=== PATIENT | male | born 1995 | race Caucasian/White ===

== ENCOUNTER 2017-11-05 11:00 | Emergency (ER) | payer MEDICAID, OTHER ==
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
[2017-11-05 13:22] VITALS: BP 135/78
== END 2017-11-05 13:22 | disposition home or self-care (01) ==
DX: S50.02XA Contusion of left elbow, initial encounter (principal); S51.012A Laceration without foreign body of left elbow, initial encounter; S50.312A Abrasion of left elbow, initial encounter; J45.909 Unspecified asthma, uncomplicated; F17.200 Nicotine dependence, unspecified, uncomplicated; V18.4XXA Pedal cycle driver injured in noncollision transport accident in traffic accident, initial encounter; Y92.410 Unspecified street and highway as the place of occurrence of the external cause; Y99.8 Other external cause status; Y93.55 Activity, bike riding

== ENCOUNTER 2017-11-07 09:46 | Emergency (ER) | payer MEDICAID ==
[2017-11-07 09:51] VITALS: BP 127/74
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
== END 2017-11-07 10:18 | disposition home or self-care (01) ==
DX: M25.522 Pain in left elbow (principal); F17.200 Nicotine dependence, unspecified, uncomplicated

== ENCOUNTER 2018-06-09 21:51 | Observation (INO) | payer SELFPAY ==
--- NOTE | 2018-06-09 22:12 | EDPHY ---
General Time Seen by Provider: 06/09/18 22:11 Narrative: CLINICAL IMPRESSION: Colitis ASSESSMENT/PLAN: Patient is a 22-year-old male with no significant medical history who presents to the emergency department with left lower quadrant pain, nausea, decreased appetite and bloody stools. Patient is afebrile, uncomfortable appearing however not toxic-appearing. His vital signs were reviewed, no findings to suggest sepsis. Hemoccult-positive, bright red blood. CBC revealed leukocytosis of 16,000, basic metabolic panel was slightly hemolyzed in revealed a mildly elevated potassium which I believe is secondary to hemolysis; no evidence of acute kidney injury. CT abdomen and pelvis revealed thickening of the descending colon with a small amount of fluid in the pelvis consistent with colitis. There is no evidence of perforation or abscess. Patient with no family history or personal history of inflammatory bowel disease. Patient was given Cipro and Flagyl in light of leukocytosis and possibility of infectious colitis. Patient was given several doses of narcotic with improvement of his discomfort, on repeat exam is abdomen was soft without evidence of a surgical abdomen. The patient will be admitted to the hospitalist service for further observation and management, I spoke directly with Dr. Cannon who will be the admitting physician. DIFFERENTIAL DX: Abdominal pain including but not limited to appendicitis, cholecystitis, gastritis and urinary tract infection. ED COURSE: 2313: Dr. Pettit, thickening of descending. Small amount of free fluid, no abscess or perforation. Consistent with colitis- infectious vs inflammatory. 2325: On repeat examination the patient reports improvement of his discomfort however still reports 5/10 pain. His abdomen is soft with tenderness in the left lower quadrant, no evidence of a surgical abdomen. CHIEF COMPLAINT: Chills, LLQ pain, nausea, decreased appetite, bloody stool HPI: Patient is a 22-year-old male with no significant medical history who presents to the emergency department with reports of decreased appetite, chills, nausea, left lower quadrant pain and the stools. Patient reports this morning he got up and went to the bathroom, experienced bright red blood in the toilet bowl. He strained very hard, was unable to actually have a bowel movement. Patient endorses the feeling of needing to defecate 7-8 additional times however unable to produce any stool, bright red blood in the toilet on each occasion. Shortly after he noted blood in the toilet he started to experience left lower quadrant pain. The pain has been constant throughout the day, has waxed and waned in intensity. He has not tried taking anything for pain. He reports associated nausea and decreased appetite, he has been unable to eat anything secondary to his pain. Patient denies any recent travel, recent antibiotic use or sick contacts. No history of similar events in the past. No family history of inflammatory bowel disease. Patient denies any urinary symptoms to include dysuria, hematuria or frequency, also denies any testicular pain or swelling. He has no history of abdominal surgeries. PMH: Denies Pertinent Past Surgical History: Denies Family History: No history of inflammatory bowel dz Social History: Denies cigarettes, occasional meth, rare alcohol REVIEW OF SYSTEMS: All other systems negative Constitutional: Chills, decreased appetite. Eyes: No discharge, vision change ENT: No sore throat, congestion, ear pain. Cardiovascular: No chest pain, no palpitations. Respiratory: No cough, no shortness of breath. Gastrointestinal: Abdominal pain, nausea, constipation, bloody stools. Genitourinary: No hematuria, dysuria, flank pain, pelvic pain Musculoskeletal: No back pain, joint swelling, joint pain, myalgias. Skin: No rashes, color change. Neurological: No headache, dizziness, weakness. PHYSICAL EXAM: General Appearance: Well-developed, uncomfortable appearing however not toxic- appearing. HENT: Normocephalic, atraumatic. Bilateral external ears are normal. Bilateral tympanic membranes are normal with pearly cardoso reflex. Nares are clear, mucosa is pink. Oropharynx is clear, uvula is midline. There is no tonsillar enlargement or exudate. The dentition is normal. Eyes: PERRLA, no acute vision change, nystagmus, swelling, discharge, pain or photosensitivity. Conjunctiva pink, no pallor or injection Neck: Supple, nontender, no lymphadenopathy, no midline pain, FROM, no meningismus. Respiratory: There are no retractions, lungs are clear to auscultation. Cardiac: Regular rate and rhythm, no murmurs or gallops. Gastrointestinal: Patient with tenderness to palpation in the left lower quadrant without guarding or rebound tenderness. Bowel sounds are present. Negative Rovsing's, negative McBurney's point tenderness and negative Arizmendi sign. No masses/hernia. Neurological: Alert and oriented x 3, CN 2-12 grossly intact, normal gait no ataxia, DTR's intact, normal sensation and strength Skin: Warm, dry, no rashes, no nodules on palpation. Musculoskeletal: Extremities are symmetrical, full range of motion, no tenderness, deformity, swelling, or erythema. Psychiatric: Patient is oriented X 3, there is no agitation. MEDICAL DECISION MAKING: Patient was seen independently. Secondary supervising physician at time of evaluation was Dr. Pradhan, he also evaluated this patient. Diagnosis: Colitis. New, requires workup Summary: See Assessment and Plan for summary of ED visit Clinical lab tests: ordered / reviewed. Independent visualization of images, tracing, or specimens: Yes. Decision to obtain medical records or history from someone other than the patient: No Review / Summarize previous medical records: Yes Discussed patient with another provider: Yes, Dr. Pradhan and Dr. Cannon Patient Progress: Stable, admit. - Diagnostics Imaging Results: Imaging Impressions Abdomen CT 06/09/18 22:45 Impression: Circumferential thickening of the descending colon with pericolonic fat stranding. Trace free fluid. Findings likely represent colitis, of inflammatory or infectious origin. Findings and recommendations discussed with STEPHANIE Malagon at 2315 hour, 06/09. - History Smoking Status: Former smoker - Objective Vital Signs: Initial Vital Signs Temperature (C) 36.9 C 06/09/18 22:02 Heart Rate 85 06/09/18 22:02 Respiratory Rate 16 06/09/18 22:02 Blood Pressure 151/89 H 06/09/18 22:02 O2 Sat (%) 98 06/09/18 22:02 O2 Delivery Mode Room Air Allergies/Adverse Reactions: No Known Allergies Allergy (Verified 06/09/18 22:05) Home Medications: Medication Instructions Recorded Albuterol 5 mg/ml INH 06/09/18 Laboratory Results: Laboratory Results 06/09/18 22:15 06/09/18 22:15 06/09/18 06/09/18 06/09/18 22:30 22:15 22:15 WBC 16.13 10^3/uL H 10^3/uL (3.80-9.50) RBC 5.01 10^6/uL 10^6/uL (4.40-6.38) Hgb 15.6 g/dL g/dL (13.7-17.5) Hct 47.4 % % (40.0-51.0) MCV 94.6 fL fL (81.5-99.8) MCH 31.1 pg pg (27.9-34.1) MCHC 32.9 g/dL g/dL (32.4-36.7) RDW 13.9 % % (11.5-15.2) Plt Count 301 10^3/uL 10^3/uL (150-400) MPV 9.9 fL fL (8.7-11.7) Neut % (Auto) 78.5 % H % (39.3-74.2) Lymph % (Auto) 12.2 % L % (15.0-45.0) [place] % (Auto) 7.3 % % (4.5-13.0) Eos % (Auto) 1.4 % % (0.6-7.6) Baso % (Auto) 0.3 % % (0.3-1.7) Nucleat RBC Rel Count 0.0 % % (0.0-0.2) Absolute Neuts (auto) 12.65 10^3/uL H 10^3/uL (1.70-6.50) Absolute Lymphs (auto) 1.97 10^3/uL 10^3/uL (1.00-3.00) Absolute Monos (auto) 1.18 10^3/uL H 10^3/uL (0.30-0.80) Absolute Eos (auto) 0.23 10^3/uL 10^3/uL (0.03-0.40) Absolute Basos (auto) 0.05 10^3/uL 10^3/uL (0.02-0.10) Absolute Nucleated RBC 0.00 10^3/uL 10^3/uL (0-0.01) Immature Gran % 0.3 % % (0.0-1.1) Immature Gran # 0.05 10^3/uL 10^3/uL (0.00-0.10) Sodium 135 mEq/L mEq/L (135-145) Potassium 5.5 mEq/L H mEq/L (3.5-5.2) Chloride 101 mEq/L mEq/L (97-110) Carbon Dioxide 26 mEq/l mEq/l (22-31) Anion Gap 8 mEq/L mEq/L (6-14) BUN 8 mg/dL mg/dL (7-23) Creatinine 0.9 mg/dL mg/dL (0.7-1.3) Estimated GFR > 60 Glucose 128 mg/dL H mg/dL (70-100) Calcium 9.5 mg/dL mg/dL (8.5-10.4) Total Bilirubin 1.3 mg/dL mg/dL (0.1-1.4) AST 44 IU/L IU/L (17-59) ALT 26 IU/L IU/L (21-72) Alkaline Phosphatase 80 IU/L IU/L (38-126) Total Protein 7.3 g/dL g/dL (6.3-8.2) Albumin 4.4 g/dL g/dL (3.5-5.0) Specimen Hemolysis 182 Stool Occult Bld Scrn POSITIVE H (NEGATIVE) Medications Given: Metronidazole/Sodium Chloride (Flagyl 500 Mg (Premix)) 100 mls @ 100 mls/hr IV EDNOW ONE PRN Reason: Protocol Stop: 06/10/18 00:18 Last Admin: 06/09/18 23:28 Dose: 100 mls Discontinued Medications Hydromorphone HCl (Dilaudid) 0.5 mg IVP EDNOW ONE Stop: 06/09/18 22:26 Last Admin: 06/09/18 22:35 Dose: 0.5 mg Sodium Chloride (Ns) 1,000 mls @ 0 mls/hr IV EDNOW ONE; Wide Open PRN Reason: Protocol Stop: 06/09/18 22:26 Last Admin: 06/09/18 22:35 Dose: 1,000 mls Ondansetron HCl (Zofran) 4 mg IVP EDNOW ONE Stop: 06/09/18 22:26 Last Admin: 06/09/18 22:35 Dose: 4 mg Departure - Departure Disposition: [facility] Clinical Impression: Colitis Leukocytosis Qualifiers: Leukocytosis type: unspecified Qualified Code(s): D72.829 - Elevated white blood cell count, unspecified
[2018-06-09] MEDS ORDERED: NS 1,000 ML IV ONE (22:25)
[2018-06-09] MEDS ORDERED: HYDROmorphONE/DILAUDID 2 MG/ML INJ IVP ONE ×2 (22:25→23:24)
[2018-06-09] MEDS ORDERED: ONDANSETRON 4 MG/2 ML VIAL IVP ONE (22:25)
[2018-06-09 22:31] LABS: PLATELET COUNT 301 10^3/uL (150-400)
[2018-06-09] MEDS ORDERED: IOHEXOL 350mgI/ML (OMNIPAQUE) 150 ML BTL IV ONE (22:49)
[2018-06-09] MEDS ORDERED: CIPROFLOXACIN 400 MG/DEXTROSE 200 ML IV ONE (23:19)
[2018-06-10] MEDS ORDERED: diphenhydrAMINE 25 MG CAP PO PRN
[2018-06-10] MEDS ORDERED: ONDANSETRON DISINTEGRATING 4 MG TAB PO PRN
[2018-06-10] MEDS ORDERED: LORazepam 2 MG/ML INJ IVP PRN
[2018-06-10] MEDS ORDERED: NS 1,000 ML IV SCH
[2018-06-10] MEDS ORDERED: ONDANSETRON 4 MG/2 ML VIAL IVP PRN
[2018-06-10] MEDS ORDERED: ACETAMINOPHEN 325 MG TAB PO PRN
[2018-06-10] MEDS: HYDROCODONE/APAP 5/325 TAB PO PRN ×2 (01:10→09:22)
[2018-06-10 04:25] LABS: PLATELET COUNT 274 10^3/uL (150-400)
--- NOTE | 2018-06-10 04:58 | GHP ---
[f rep st] HISTORY AND PHYSICAL DATE OF ADMISSION: 06/09/2018 PRIMARY CARE PHYSICIAN: Caryn. SOURCE: Patient provides history, is a fair historian. The EMR was reviewed and case discussed with ED provider. CHIEF COMPLAINT: Left lower quadrant abdominal pain, bloody stools. HISTORY OF PRESENT ILLNESS: This is a very pleasant 22-year-old gentleman with past medical history significant for asthma, ADHD, who presents to the emergency department today with complaints of bright red bloody stools and left lower quadrant abdominal pain. Patient reports that his symptoms started this morning. He went to the bathroom and had bright red blood in the toilet bowl. Patient endorses worsening, intermittent, cramping, left lower quadrant abdominal pain, nausea, and chills, but no vomiting. Patient has not had any passage of stools. Rather, he reports silvestre blood when he went to the bathroom. He denies any fevers. No recent travels or exposures. No known sick contacts with similar symptoms. Patient without any previous history of GI irritability or medical issues. No family history of GI-related illnesses. No IBD history in either himself or family. REVIEW OF SYSTEMS: Ten systems reviewed and negative except as noted above. ALLERGIES: No known drug allergies. HOME MEDICATIONS: Albuterol. PAST MEDICAL HISTORY: Significant for shingles 2012, chronic back pain, asthma , ADHD, abscess. PAST SURGICAL HISTORY: Patient had a mandibular fracture repair FAMILY HISTORY: Negative for IBD. Grandmother with diabetes. SOCIAL HISTORY: Patient is employed. He quit smoking and utilizing any illicit drug use including a previous history of meth. He rarely drinks any alcohol except for special occasions. CODE STATUS: Full. PHYSICAL EXAMINATION: VITAL SIGNS: Upon arrival to the ED, blood pressure is 151/89, heart rate is 85, respiratory rate of 16, O2 saturation is 98% on room air, temperature 36.9. CURRENT VITALS AVAILABLE: Blood pressure 127/69, heart rate 96, respiratory rate 15, O2 saturation 96% on room air with a temperature of 37.0. GENERAL: No acute distress. Pleasant, young adult male, who is lying quietly on bed. He is sleeping quietly, in no acute distress. He is a little bit somnolent and does fall asleep intermittently during the interview. HEAD: Normocephalic, atraumatic. EYES: Extraocular muscles are grossly intact. Pupils equal, round, and symmetric. No scleral icterus, conjunctival injection. Mucous membranes appear dry. No nasal discharge. NECK: Supple. Trachea midline. CV: Regular rate and rhythm. No murmurs, rubs, or gallops appreciated. RESPIRATORY: Unlabored breathing. Lungs clear to auscultation bilaterally. No wheezes, rales, or rhonchi. Abdomen with slightly hypoactive bowel sounds, but no tenderness to palpation. No rebound, guarding, or masses appreciated. Nondistended abdomen. : No suprapubic tenderness to palpation. No Monroe catheter in place. EXTREMITIES: 2+ pedal pulses bilaterally and symmetric. No edema. Patient able to move all extremities. NEURO: Grossly nonfocal. No facial drooping. Patient moves all extremities. PSYCH: Affect slightly flat, but patient is again somnolent. He is otherwise pleasant and cooperative. LABORATORY STUDIES: WBC 16.3, H and H are 15.6 and 47.4, MCV of 94.6, platelet count is 301. No bands. Neutrophils 378.5. Sodium is 135, potassium is 5.5; however, sample is hemolyzed, chloride 101, CO2 is 26, anion gap 8, BUN 8, creatinine 0.9, GFR of greater than 60, glucose 128, calcium is 9.5, total bilirubin is 1.3, ALT is 26, AST is 44, alkaline phosphatase 88, total protein 7.3, albumin is 4.4. Occult stool blood is positive. CT abdomen and pelvis image report reviewed significant for circumferential thickening of the descending colon with pericolonic fat stranding. Trace free fluid. Findings likely represent colitis of inflammatory or infectious origin. ASSESSMENT AND PLAN: Brain, 22-year-old gentleman, with a history of asthma , who presents to the emergency department today with complaints of 1-day history of left lower quadrant abdominal pain and bloody stools. 1. Colitis, suspected infectious colitis versus less likely ischemic versus less likely ulcerative colitis. Patient without any previous abdominal issues and no family history of autoimmune or IBD. The patient has been started on ciprofloxacin and Flagyl. The patient reports improvement of his symptoms. He does continue to have some intermittent cramping, but has been resting on the floor since his arrival without any additional bloody bowel movements. If patient should develop worsening abdominal pain or diarrhea, we will plan to check a GI PCR; however, at this time, again patient's symptoms appear to have come under control. Continue antibiotic therapy. Clear diet until patient is a little bit more awake to tolerate a regular and advance as tolerated. Outpatient followup with GI when patient recovers. 2. Leukocytosis, likely related to infectious etiology in setting of the patient's apparent colitis, now on antibiotics. We will plan to repeat a CBC in the morning. 3. Hyperkalemia is likely due to hemolyzed specimen. Plan to repeat in the morning. 4. Hyperglycemia, is nonfasting lab. Plan to recheck a fasting in the a.m. labs. 5. Fluid, electrolyte, nutrition. Patient will receive IV fluid supplementation overnight and advance diet as tolerated. He has been tolerating clears very well. Electrolytes are adequate. Monitor potassium as noted above. 6. Prophylaxis. Sequential compression devices. Holding anticoagulation in setting of gastrointestinal bleeding as well as low risk and anticipated short hospital stay. 7. Cor status is full. DISPOSITION: The patient admitted to observation status on med/surge floor for continued treatment of his colitis. /[id number]/MODL MTDD
[2018-06-10] MEDS ORDERED: CIPROFLOXACIN 400 MG/DEXTROSE 200 ML IV SCH (09:00)
--- NOTE | 2018-06-10 11:40 | ASMTCMCOM ---
CM Note CM Note Notes: Pts case discussed in tx rounds. Pt is a 22 y/o man admitted for colitis. Pt has court today at 1PM. Pt notified the court that he is in the hospital and will not be able to make it. Pt will need a letter for court when he is medically stable to d/c. CM made a referral to [facility]. Pt has a hx of meth use but currently sober. Pt will d/c independent without any needs. CM available for changes. Plan: Independent Date Signed: 06/10/2018 11:39 AM Electronically Signed By:JAYA Webster
--- NOTE | 2018-06-10 14:22 | ASMTCMCOM ---
CM Note CM Note Notes: CM wrote pt a letter for the courts stating he is in the hospital. Pts grandmother stopped by and picked up the letter to deliver to the courts. CM called a number for the courts that pt provided (P#: [phone]) and left a msg stating he is at [facility]. Date Signed: 06/10/2018 02:22 PM Electronically Signed By:JAYA Webster
--- NOTE | 2018-06-10 14:39 | HOSPPROG ---
Hospitalist Progress Note Assessment/Plan: Colitis - Presenting with LLQ Abd pain, BRBPR - CT on admission showing thickening of descending colon, no perforation or abscess seen - Infectious vs. Inflammatory, no hx of abdominal issues, no family hx of IBD or autoimmune diseases - Started on Cipro/Flagyl IV, will continue for now - GI PCR ordered, f/u results - Continued to have BRBPR this AM, consulted GI for need for colonoscopy IP vs. OP BRBPR - Having bloody bowel movements in setting of colitis as above - Hgb decreased 15.6 -> 13.9 this AM, partially diluted but also had large bloody BM this AM - GI consulted as above for colonoscopy need - Continue to monitor H/H, transfuse H/H <7/20 Leukocytosis - WBC 16.1 on admission, decreased to 10.5 this AM - In setting of colitis, management as above, will continue empiric Flagyl/ Cipro - Continue to monitor FEN: NPO for now pending GI evaluation DVT PPx: Holding for now given GIB Code: FULL Dispo: Pending clinical course Objective: Vital Signs Temp Pulse Resp BP Pulse Ox 36.3 C 75 16 113/63 96 06/10/18 07:36 06/10/18 07:36 06/10/18 07:36 06/10/18 07:36 06/10/18 07:36 Laboratory Results 06/10/18 03:56 06/10/18 03:56 06/09/18 06/10/18 06/11/18 05:59 05:59 05:59 Intake Total 3025 Balance 3025 ICD10 Worksheet Patient Problems: Problems Problem Status Onset Colitis Acute Leukocytosis Acute
[2018-06-10 15:29] VITALS: BP 125/59
--- NOTE | 2018-06-10 16:05 | PDDCSUM ---
Discharge Summary Discharge Summary: Date of Admission: 06/09/2018 Date of Admission: 06/10/2018 Hospital Course Problem List: Patient requested to leave AMA, discussed benefits and risks of leaving the hospital prior to discharge which included worsening of condition and possible , patient expressed understanding. Colitis - Presenting with LLQ Abd pain, BRBPR - CT on admission showing thickening of descending colon, no perforation or abscess seen - Infectious vs. Inflammatory, no hx of abdominal issues, no family hx of IBD or autoimmune diseases - Started on Cipro/Flagyl IV, will continue for 5 day course, will send rx to pharmacy - GI PCR ordered, f/u results - Continued to have BRBPR this AM, consulted GI for need for colonoscopy IP vs. OP, recommended patient followup as outpatient with PCP for further evaluation BRBPR - Having bloody bowel movements in setting of colitis as above - Hgb decreased 15.6 -> 13.9 this AM, partially diluted but also had large bloody BM this AM - GI consulted as above for colonoscopy need Leukocytosis - WBC 16.1 on admission, decreased to 10.5 this AM - In setting of colitis, management as above, will continue empiric Flagyl/ Cipro - Continue to monitor Time spent on documentation was >35 minutes with >50% of time spent on patient education and counseling.
--- NOTE | 2018-06-10 16:27 | ASMTCMCOM ---
CM Note CM Note Notes: Pt left AMA. CM notified the courts (P#: [phone]) that pt is leaving AMA. Date Signed: 06/10/2018 04:26 PM Electronically Signed By:JAYA Webster
== END 2018-06-10 15:56 | disposition left against medical advice (07) ==
LOC: F2W 06-10 00:28
PROVIDERS: ADMIT Family Medicine; ATTEND Internal Medicine
DX: K52.9 Noninfective gastroenteritis and colitis, unspecified (principal); K92.1 Melena; E86.9 Volume depletion, unspecified; D72.829 Elevated white blood cell count, unspecified; E87.5 Hyperkalemia; R73.9 Hyperglycemia, unspecified; J45.909 Unspecified asthma, uncomplicated; F90.9 Attention-deficit hyperactivity disorder, unspecified type; Z87.891 Personal history of nicotine dependence
CPT/HCPCS: 96374; G0378; J0744; J1170; J2405; Q9967

== ENCOUNTER 2018-06-11 17:04 | Observation (INO) | payer MEDICAID, OTHER ==
--- NOTE | 2018-06-11 17:31 | EDPHY ---
H & P Stated Complaint: abd pain, bloody stools Time Seen by Provider: 06/11/18 17:18 HPI/ROS: CHIEF COMPLAINT: "I shouldn't have left the hospital yesterday " HISTORY OF PRESENT ILLNESS: 22-year-old male was admitted to [facility] yesterday for left lower quadrant abdominal pain , bright red blood per rectum and CT showing thickening of the descending colon, infectious versus inflammatory colitis. He informs that he left against medical advice because he was afraid to get a colonoscopy, however upon talking to his family and he returned home the encouraged him to come to the ER and have a colonoscopy performed. He is agreeable with colonoscopy should he get readmitted to the hospital. When he left AMA he was given prescription for Cipro and Flagyl. He has been taking this as prescribed. He is complaining of continued bright red blood per rectum and continued left lower quadrant abdominal pain. No nausea no vomiting. No testicular pain. No urinary abnormality. No pain with defecation. No dizziness. No syncope or near syncope. No chest pain. No dyspnea. Last oral intake was breakfast this morning. REVIEW OF SYSTEMS: 10 systems reviewed and negative with the exception of the elements mentioned in the history of present illness PAST MEDICAL & SURGICAL HISTORY: recent hospital admission for left lower quadrant abdominal pain SOCIAL HISTORY: Positive for tobacco abuse PHYSICAL EXAM (Prior to examination, patient consented to physical exam, hands were washed and my usual and customary physical exam procedures followed) 1) GENERAL: Well-developed, well-nourished, alert and oriented. Appears to be in no acute distress. 2) HEAD: Normocephalic, atraumatic 3) HEENT: Pupils equal, round, reactive to light bilaterally. Sclera anicteric. Nasopharynx, oropharynx, clear, no lesions. Dry mucous membranes. 4) NECK: Full range of motion, no meningeal signs. 5) LUNGS: Clear auscultation bilaterally, no wheezes, no rhonchi, no retractions. 6) HEART: Regular rate and rhythm, no murmur, no heave, no gallop. 7) ABDOMEN: guarding left lower quadrant, tender to palpation left lower quadrant. No peritoneal sign., 8) MUSCULOSKELETAL: Moving all extremities, no focal areas of tenderness, no obvious trauma. No peripheral edema or discoloration. 9) BACK: No CVA tenderness, no midline vertebral tenderness, no fluctuance, no step-off, no obvious trauma, no visual or palpable abnormality. 10) SKIN: No rash, no petechiae. 11) Psychiatric: Patient is oriented X 3, there is no agitation. DIFFERENTIAL DIAGNOSIS: In no particular order including but not limited to diverticulitis, diverticular abscess, colitis - Personal History Current Tetanus/Diphtheria Vaccine: Yes Current Tetanus Diphtheria and Acellular Pertussis (TDAP): Yes - Medical/Surgical History Hx Asthma: Yes Hx Chronic Respiratory Disease: No Hx Diabetes: No Hx Cardiac Disease: No Hx Renal Disease: No Hx Cirrhosis: No Hx Alcoholism: No Hx HIV/AIDS: No Hx Splenectomy or Spleen Trauma: No Other PMH: asthma, adhd, abcess 2/2 spider bite. MCA 11/05/17., colitis - Social History Smoking Status: Former smoker Constitutional: Initial Vital Signs Temperature (C) 36.6 C 06/11/18 17:09 Heart Rate 105 H 06/11/18 17:09 Respiratory Rate 16 06/11/18 17:09 Blood Pressure 107/89 H 06/11/18 17:09 O2 Sat (%) 99 06/11/18 17:09 O2 Delivery Mode Room Air Allergies/Adverse Reactions: No Known Allergies Allergy (Verified 06/11/18 17:09) Home Medications: Medication Instructions Recorded Albuterol [Proventil Inhaler HFA 1 - 2 puffs IH Q4H PRN 06/09/18 (*)] Medical Decision Making ED Course/Re-evaluation: 5:30 p.m.: I reviewed the patient's old medical records. He apologizes for leaving the hospital against medical advice. He would like to be readmitted speaking have a colonoscopy performed.. He is complaining of continued left lower quadrant abdominal pain and bright red blood per rectum. Will obtain laboratory studies. Will hold on repeat CT at this time. Care of patient under supervision of secondary supervising physician Dr Stoney Gore with whom I discussed case. Patient is hemodynamically stable at this time. He is NPO since 9:00 a.m. today. 5:[address] Martinez who will admit patient to hospital. - Data Points Laboratory Results: Laboratory Results 06/11/18 17:26 06/11/18 17:26 06/11/18 06/11/18 17:26 17:26 WBC 12.45 10^3/uL H 10^3/uL (3.80-9.50) RBC 4.95 10^6/uL 10^6/uL (4.40-6.38) Hgb 15.2 g/dL g/dL (13.7-17.5) Hct 45.7 % % (40.0-51.0) MCV 92.3 fL fL (81.5-99.8) MCH 30.7 pg pg (27.9-34.1) MCHC 33.3 g/dL g/dL (32.4-36.7) RDW 13.9 % % (11.5-15.2) Plt Count 321 10^3/uL 10^3/uL (150-400) MPV 9.6 fL fL (8.7-11.7) Neut % (Auto) 67.0 % % (39.3-74.2) Lymph % (Auto) 19.9 % % (15.0-45.0) [place] % (Auto) 9.1 % % (4.5-13.0) Eos % (Auto) 2.7 % % (0.6-7.6) Baso % (Auto) 0.4 % % (0.3-1.7) Nucleat RBC Rel Count 0.0 % % (0.0-0.2) Absolute Neuts (auto) 8.34 10^3/uL H 10^3/uL (1.70-6.50) Absolute Lymphs (auto) 2.48 10^3/uL 10^3/uL (1.00-3.00) Absolute Monos (auto) 1.13 10^3/uL H 10^3/uL (0.30-0.80) Absolute Eos (auto) 0.34 10^3/uL 10^3/uL (0.03-0.40) Absolute Basos (auto) 0.05 10^3/uL 10^3/uL (0.02-0.10) Absolute Nucleated RBC 0.00 10^3/uL 10^3/uL (0-0.01) Immature Gran % 0.9 % % (0.0-1.1) Immature Gran # 0.11 10^3/uL H 10^3/uL (0.00-0.10) Sodium 135 mEq/L mEq/L (135-145) Potassium 4.0 mEq/L mEq/L (3.5-5.2) Chloride 97 mEq/L mEq/L (97-110) Carbon Dioxide 29 mEq/l mEq/l (22-31) Anion Gap 9 mEq/L mEq/L (6-14) BUN 13 mg/dL mg/dL (7-23) Creatinine 0.9 mg/dL mg/dL (0.7-1.3) Estimated GFR > 60 Glucose 96 mg/dL mg/dL (70-100) Calcium 9.6 mg/dL mg/dL (8.5-10.4) Total Bilirubin 0.3 mg/dL mg/dL (0.1-1.4) Conjugated Bilirubin 0.3 mg/dL mg/dL (0.0-0.5) Unconjugated Bilirubin 0.0 mg/dL mg/dL (0.0-1.1) AST 34 IU/L IU/L (17-59) ALT 32 IU/L IU/L (21-72) Alkaline Phosphatase 88 IU/L IU/L (38-126) Total Protein 7.2 g/dL g/dL (6.3-8.2) Albumin 4.3 g/dL g/dL (3.5-5.0) Lipase 50 IU/L IU/L (23-300) Departure - Departure Disposition: [facility] Acute Clinical Impression: Colitis Condition: Fair
[2018-06-11 17:47] LABS: PLATELET COUNT 321 10^3/uL (150-400)
[2018-06-11] MEDS ORDERED: NS 1,000 ML IV ONE (17:51)
[2018-06-11] MEDS ORDERED: ONDANSETRON 4 MG/2 ML VIAL IVP PRN (19:07)
[2018-06-11] MEDS ORDERED: ACETAMINOPHEN 325 MG TAB PO PRN (19:07)
[2018-06-11] MEDS ORDERED: ONDANSETRON DISINTEGRATING 4 MG TAB PO PRN (19:07)
[2018-06-11] MEDS ORDERED: ALBUTEROL 60 PUFFS/8 GM MDI IH PRN (19:10)
[2018-06-11] MEDS ORDERED: NS 1,000 ML IV SCH (19:15)
--- NOTE | 2018-06-11 19:25 | PDGENHP ---
History and Physical - Chief Complaint LLQ abdominal pain, hematochezia - History of Present Illness HPI: This is a 22 y/o male with history of asthma, ADHD who was admitted yesterday for bright-red stools per rectum and LLQ abdominal pain that started yesterday prior to arrival to ER however left against medical advice the same day because he was scared of a colonoscopy. He has since returned after discussing it with his family and said he should never have left in the first place. He continues to have LLQ > RLQ pain, he has had one BM since leaving yesterday which was loose and bright red blood. He endorses feeling lightheaded constantly. Denies nausea, vomiting, fever or chills. No chest pains, palpitations or shortness of breath. No history of GI irritability. Yesterday's abdominal CT scan showed thickening of descending colon, no perforation or abscess seen. Most likely colitis either inflammatory or infectious. Past Medical History 1. Shingles (2011) 2. Chronic back pain 3. Asthma 4. ADHD 5. Abscess secondary to a spider bite Past Surgical History 1. Mandibular fracture repair Social He is employed. He quit smoking 2 weeks ago because he has asthma. Denies illicit drug use; prior use of meth. He rarely drinks alcohol. History Information - Allergies/Home Medication List Allergies/Adverse Reactions: No Known Allergies Allergy (Verified 06/11/18 17:09) Home Medications: Albuterol [Proventil Inhaler HFA (*)] 1 - 2 puffs IH Q4H PRN 06/09/18 [Last Taken Unknown] I have personally reviewed and updated: family history, medical history, social history, surgical history Past Medical History: See HPI list - Surgical History Additional surgical history: See HPI list - Family History Positive for: diabetes type II - Social History Smoking Status: Former smoker Review of Systems Review of Systems: ROS: 10pt was reviewed & negative except for what was stated in HPI & below Constitutional: Reports: chills, malaise EENMT: Reports: no symptoms Cardiac: Reports: lightheadedness Respiratory: Reports: no symptoms Gastrointestinal: Reports: blood streaked stools, abdominal pain Genitourinary: Reports: no symptoms Muscolosketal: Reports: no symptoms Skin: Reports: no symptoms Neurological: Reports: no symptoms Hematologic/Lymphatic: Reports: no symptoms Immunologic/Allergy: Reports: no symptoms Physical Exam Physical Exam: Lab data and imaging were reviewed. Case discussed with admitting physician, Dr. Iván Stuart Pulse Resp BP Pulse Ox 37.1 C 94 18 117/72 99 06/11/18 18:25 06/11/18 18:25 06/11/18 18:25 06/11/18 18:25 06/11/18 18:25 Constitutional: no apparent distress, appears nourished, uncomfortable Eyes: PERRL, anicteric sclera, EOMI Ears, Nose, Mouth, Throat: moist mucous membranes, hearing normal, ears appear normal, no oral mucosal ulcers Cardiovascular: regular rate and rhythym, no murmur, rub, or gallop, No edema Peripheral Pulses: 2+: dorsalis-pedis (R) (Radial 2+), dorsalis-pedis (L) ( Radial 2+) Respiratory: no respiratory distress, no rales or rhonchi, clear to auscultation Gastrointestinal: normoactive bowel sounds, tenderness, guarding Genitourinary: no bladder fullness, no bladder tenderness Skin: warm, normal color, no rashes or abrasions, no fluctuance, no induration, No mottled Musculoskeletal: full muscle strength, no muscle tenderness, normal joint ROM, no joint effusions Neurologic: AAOx3, sensation intact bilaterally, CN II-XII Intact Psychiatric: interacting appropriately, not anxious, not encephalopathic, thought process linear Lymph, Heme, Immunologic: no cervical LAD, no supraclavicular LAD Lab Data & Imaging Review 06/11/18 17:26 06/11/18 17:26 WBC 12.45 10^3/uL (3.80-9.50) H 06/11/18 17:26 RBC 4.95 10^6/uL (4.40-6.38) 06/11/18 17:26 Hgb 15.2 g/dL (13.7-17.5) 06/11/18 17: Hct 45.7 % (40.0-51.0) 06/11/18 17: MCV 92.3 fL (81.5-99.8) 06/11/18 17: MCH 30.7 pg (27.9-34.1) 06/11/18 17: MCHC 33.3 g/dL (32.4-36.7) 06/11/18 17:26 RDW 13.9 % (11.5-15.2) 06/11/18 17:26 Plt Count 321 10^3/uL (150-400) 06/11/18 17:26 MPV 9.6 fL (8.7-11.7) 06/11/18 17:26 Neut % (Auto) 67.0 % (39.3-74.2) 06/11/18 17:26 Lymph % (Auto) 19.9 % (15.0-45.0) 06/11/18 17:26 [place] % (Auto) 9.1 % (4.5-13.0) 06/11/18 17:26 Eos % (Auto) 2.7 % (0.6-7.6) 06/11/18 17: Baso % (Auto) 0.4 % (0.3-1.7) 06/11/18 17: Nucleat RBC Rel Count 0.0 % (0.0-0.2) 06/11/18 17:26 Absolute Neuts (auto) 8.34 10^3/uL (1.70-6.50) H 06/11/18 17:26 Absolute Lymphs (auto) 2.48 10^3/uL (1.00-3.00) 06/11/18 17:26 Absolute Monos (auto) 1.13 10^3/uL (0.30-0.80) H 06/11/18 17:26 Absolute Eos (auto) 0.34 10^3/uL (0.03-0.40) 06/11/18 17:26 Absolute Basos (auto) 0.05 10^3/uL (0.02-0.10) 06/11/18 17: Absolute Nucleated RBC 0.00 10^3/uL (0-0.01) 06/11/18 17:26 Immature Gran % 0.9 % (0.0-1.1) 06/11/18 17: Immature Gran # 0.11 10^3/uL (0.00-0.10) H 06/11/18 17:26 Sodium 135 mEq/L (135-145) 06/11/18 17:26 Potassium 4.0 mEq/L (3.5-5.2) 06/11/18 17:26 Chloride 97 mEq/L (97-110) 06/11/18 17:26 Carbon Dioxide 29 mEq/l (22-31) 06/11/18 17:26 Anion Gap 9 mEq/L (6-14) 06/11/18 17:26 BUN 13 mg/dL (7-23) 06/11/18 17:26 Creatinine 0.9 mg/dL (0.7-1.3) 06/11/18 17:26 Estimated GFR > 60 06/11/18 17:26 Glucose 96 mg/dL (70-100) 06/11/18 17:26 Calcium 9.6 mg/dL (8.5-10.4) 06/11/18 17:26 Total Bilirubin 0.3 mg/dL (0.1-1.4) 06/11/18 17:26 Conjugated Bilirubin 0.3 mg/dL (0.0-0.5) 06/11/18 17:26 Unconjugated Bilirubin 0.0 mg/dL (0.0-1.1) 06/11/18 17:26 AST 34 IU/L (17-59) 06/11/18 17:26 ALT 32 IU/L (21-72) 06/11/18 17:26 Alkaline Phosphatase 88 IU/L (38-126) 06/11/18 17:26 Total Protein 7.2 g/dL (6.3-8.2) 06/11/18 17:26 Albumin 4.3 g/dL (3.5-5.0) 06/11/18 17:26 Lipase 50 IU/L (23-300) 06/11/18 17:26 Assessment & Plan Plan: 22 y/o presents once again to the ER with continued symptoms of silvestre blood in stool and LLQ abdominal pain. #Colitis: presenting with LLQ abd pain, bright red blood per rectum. CT image most likely colitis, inflammatory vs infectious. -Yesterday was started on IV and then later PO Flagyl and Cipro: will continue these IV -Checking GI pathogen panel. F/u results -Consulted GI for possible colonoscopy. Dr Haddad to evaluate pt tonight therefore is placed on NPO status for now. May transition to clear liquid diet if no interventions by GI take place. #Bright red blood per rectum -Having bloody bowel movements in setting of colitis as above -Hgb 15.2 compared to yesterday which was 13.9 -GI consulted as above for colonoscopy need -Cycle H/H Q4H x3, continue to monitor, tranfuse H/H <7/20 #Leukocytosis -WBC 12.45 compared to yesterday which was 16.1 on admission -In setting of colitis, management as above, will continue empiric Flagyl/Cipro -Continue to monitor Diet: NPO for now pending GI evaluation VTE ppx: SCDs Code: Full Dispo: Admit to obs
--- NOTE | 2018-06-11 20:14 | SOAPPROG ---
SOAP Progress Note Assessment/Plan: Assessment:Plan: see full dictated consult to follow 22 y/o male with acute onset pain and hematochezia with abn, ct showing thickening in descending colon infectous vs inflammatory no f/c/s, was w/o sx's prior to acute event few days ago colon prep, colon tomorrow post prep with anesthesia Kiet Haddad MD [phone] 06/11/18 20:12 Objective: Vital Signs Temp Pulse Resp BP Pulse Ox 36.7 C 83 17 111/70 96 06/11/18 19:22 06/11/18 19:22 06/11/18 19:22 06/11/18 19:22 06/11/18 19:22 Laboratory Results 06/11/18 19:45 06/10/18 06/11/18 06/12/18 05:59 05:59 05:59 Intake Total 850 Balance 850 ICD10 Worksheet Patient Problems: Problems Problem Status Onset Colitis Acute Leukocytosis Acute
[2018-06-11] MEDS ORDERED: PEG 3350/NA SULF,BICARB,CL/KCL (GAVILYTE-G) 4000 ML BTL PO ONE (20:15)
[2018-06-11] MEDS ORDERED: CIPROFLOXACIN 400 MG/DEXTROSE 200 ML IV SCH (21:00)
--- NOTE | 2018-06-11 22:15 | HOSPPROG ---
Hospitalist Progress Note Assessment/Plan: 22 y/o presents returning with silvestre blood in stool and LLQ abdominal pain. Pt seen with LOG INSPECTOR, please refer to her H&P. Agree with her A/P #Colitis #Bright red blood per rectum #Leukocytosis Agree with Abx Clears tonight colonoscopy in a.m. GI following d/W GI Subjective: He is glad to have returned. abd pain is minimal now. no cp or sob. afebrile Objective: Vital Signs Temp Pulse Resp BP Pulse Ox 36.6 C 77 18 120/77 95 06/11/18 20:30 06/11/18 20:30 06/11/18 20:30 06/11/18 20:30 06/11/18 20:30 Microbiology 06/11/18 20:35 Gastrointestinal Tract Panel (PCR) - Final Stool Laboratory Results 06/11/18 19:45 06/10/18 06/11/18 06/12/18 05:59 05:59 05:59 Intake Total 850 Balance 850 - Physical Exam Constitutional: no apparent distress Eyes: PERRL, EOMI Ears, Nose, Mouth, Throat: moist mucous membranes, hearing normal Cardiovascular: regular rate and rhythym, No edema Respiratory: no respiratory distress, no rales or rhonchi, clear to auscultation Gastrointestinal: normoactive bowel sounds, soft, non-tender abdomen Skin: warm Neurologic: AAOx3 Psychiatric: interacting appropriately, not anxious, not encephalopathic Lymph, Heme, Immunologic: No petechiae ICD10 Worksheet Patient Problems: Problems Problem Status Onset Colitis Acute Leukocytosis Acute
--- NOTE | 2018-06-12 07:51 | GCON ---
[f rep st] CONSULTATION DATE OF CONSULTATION: 06/11/2018 REFERRING PHYSICIAN: Dr. George INDICATION FOR CONSULTATION: Abdominal pain, blood in stool and abnormal CT scan. HPI: I have been asked by Dr. George to see Harshil in consultation for a chief complaint of abdominal p ain, abnormal imaging, hematochezia. He was admitted yesterday and had a CT scan that showed descend ing colon thickening, but he signed out AMA as he was scared of a colonoscopy. He has returned becau se he had continued symptoms, and his family encouraged him to come back and have evaluation and told him that colonoscopy was not as bad as he had feared. So, he is now readmitted for the above, and I am called to help evaluate and treat in that regard. PAST MEDICAL HISTORY: Shingles, chronic back pain, asthma, ADHD and abscess secondary to a spider bi te. PAST SURGICAL HISTORY: Mandibular fracture repair. SOCIAL HISTORY: He quit smoking 2 weeks ago because of his asthma. He has a history of illicit drug use but does not use them now. He rarely drinks alcohol. MEDICATIONS: His medications at home were just albuterol as needed. Medications in hospital include Tylenol as needed, albuterol as needed, ciprofloxacin 40 mg intravenous every 12 hours, Flagyl 500 m g intravenous every 8 hours, Zofran as needed. ALLERGIES: No known drug allergies. FAMILY HISTORY: No family history of inflammatory bowel disease. He does have a grandparent with rh eumatoid arthritis but no other immune issues to his knowledge. REVIEW OF SYSTEMS: Complete review of systems performed is negative other than what is noted in the HPI. PHYSICAL EXAM: GENERAL: Well-developed, well-nourished male sitting in his bed in no acute distress . VITAL SIGNS: Blood pressure 120/77, pulse 77, respirations 18, 95% on room air, temperature 36.6. EYES: Anicteric. FERNANDO, EOMI. MOUTH: No lesions. Moist mucous membranes. NECK: Supple. Full range of motion. No JVD. BACK: No spine tenderness. No CVA tenderness. LUNGS: Clear to ausculta tion. CARDIAC: S1, S2. Regular rate and rhythm. No murmurs or rubs appreciated. ABDOMEN: Bowel sounds are normal pitch and frequency. Abdomen is soft with left-sided tenderness. No rebound, no g uarding, no hepatosplenomegaly. EXTREMITIES: No cyanosis, clubbing or edema. NEUROLOGIC: Cranial nerves are intact, nonfocal. SKIN: No stigmata of advanced liver disease. No rashes. DATA REVIEWED: Laboratory data from the : WBC 12.45, hemoglobin 15.2, hematocrit 45.7, platelet count 321; repeat hemoglobin was 12.3. Sodium 135, potassium 4.0, chloride 97, bicarbonate 29, BUN 1 3, creatinine 0.9, glucose 96, calcium 9.6, bilirubin 0.3, AST 34, ALT 32, alkaline phosphatase 88, t otal protein 7.2, albumin 4.3, lipase 50. Stool occult blood was negative from today. WBC on was 16.3. Stool occult blood on June 09 was positive. There was a stool PCR submitted t that was not run because it was solid stool. Abdominal CT scan on June 09 revealed circumferential thickening of the descending colon with pe ricolonic fat stranding, trace free fluid likely represents colitis, question inflammatory versus inf ectious. I did review the CT scan with the radiologist, this evening, and there is no inflammation i n the sigmoid colon or the rectum. It is really only in descending colon. ASSESSMENT: 1. Abnormal computerized axial tomography scan. 2. Abdominal pain. 3. Blood in stool. RECOMMENDATIONS: 1. Prep for colonoscopy in AM with anesthesia. 2. Continue antibiotics for now, although I will probably stop them as I do not think this is going to be an infectious process. 3. Further recommendations to follow results of colonoscopy. Thank you for allowing me to participate in this patient's healthcare. Do not hesitate to call me if you have any questions. /[id number]/MODL
[2018-06-12 07:59] VITALS: BP 108/87
--- NOTE | 2018-06-12 16:07 | GDS ---
[f rep st] DISCHARGE SUMMARY The patient left against medical advice. DISCHARGE DIAGNOSES: 1. Colitis. 2. Bright-red blood per rectum. 3. Leukocytosis. CONSULTATIONS: Gastroenterology. PHYSICAL EXAM: I did not see the patient prior to disposition. HOSPITAL COURSE: Mr. Mckinney is a 22-year-old male who has left twice now against medical advice wit h complaints of bright-red blood per rectum. It was recommended that he have a colonoscopy. During this hospitalization, he did receive a consultation from Dr. Haddad of Gastroenterology. The patient has decided not to have a colonoscopy and has left against medical advice. There are no pending esmer dies. /[id number]/MODL
== END 2018-06-12 08:41 | disposition left against medical advice (07) ==
LOC: F3E 18:30
PROVIDERS: ADMIT Family Medicine; ATTEND Internal Medicine
DX: K52.9 Noninfective gastroenteritis and colitis, unspecified (principal); K92.1 Melena; R93.3 Abnormal findings on diagnostic imaging of other parts of digestive tract; D72.829 Elevated white blood cell count, unspecified; R10.32 Left lower quadrant pain; J45.909 Unspecified asthma, uncomplicated; F90.9 Attention-deficit hyperactivity disorder, unspecified type; G89.29 Other chronic pain; Z87.891 Personal history of nicotine dependence
CPT/HCPCS: G0378; J0744